=== PATIENT | female | born 1980 | race Caucasian/White ===

== ENCOUNTER 2020-03-12 21:37 | Emergency (ER) | payer OTHER ==
[2020-03-12 21:51] VITALS: BP 170/97; PULSE 80; TEMP 98.3; BMI 32.4
== END 2020-03-12 22:26 | disposition home or self-care (01) ==
LOC: JER 21:37
DX: H92.03 Otalgia, bilateral (principal)
CPT/HCPCS: 99284-25; C9803; U0003

== ENCOUNTER 2024-01-14 01:20 | Emergency (ER) | payer OTHER ==
[2024-01-14 01:30] VITALS: PULSE 79; RESP 18; TEMP 99.3; BMI 29.9
[2024-01-14] MEDS ORDERED: KETOROLAC TROMETHAMINE 30 MG/1 ML VIAL ONE (02:06)
[2024-01-14] MEDS ORDERED: LIDOCAINE 4% PATCH TP ONE (02:07)
[2024-01-14] MEDS: KETOROLAC TROMETHAMINE 30 MG/1 ML VIAL IM ONE (02:11)
[2024-01-14] MEDS: LIDOCAINE 4% PATCH TP ONE (02:12)
[2024-01-14 02:45] VITALS: BP 169/88
[2024-01-14] MEDS ORDERED: LIDOCAINE PATCH REMOVAL MC ONE (14:00)
== END 2024-01-14 02:46 | disposition home or self-care (01) ==
LOC: JER 01:20
PROC: 3E0133Z Introduction of Anti-inflammatory into Subcutaneous Tissue, Percutaneous Approach (ICD-10-PCS; principal; 2024-01-14)
DX: M54.6 Pain in thoracic spine (principal); M54.50 Low back pain, unspecified; G89.29 Other chronic pain
CPT/HCPCS: 99284-25